=== PATIENT | male | born 1965 | race Caucasian/White ===

== ENCOUNTER 2019-07-24 10:59 | Emergency (ER) | payer OTHER, BC ==
[~2019-07-24] VITALS: Ht 185.4 cm; Wt 86.2 kg
[~2019-07-24 10:59] MED LIST: ALLO300T2 PO; FENO145T PO; LISI10TA5 PO
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
[2019-07-24] MEDS ORDERED: TDAP [DIPH/PERTUSSIS/TET] 0.5 ML VIAL IM ONE ×2 (12:11→12:30)
[2019-07-24] MEDS ORDERED: KETOROLAC TROMETHAMINE INJ 30 MG/ML VIAL ONE (12:11)
[2019-07-24] MEDS ORDERED: KETOROLAC TROMETHAMINE INJ 60 MG/2 ML VIAL IM ONE (12:30)
--- NOTE | 2019-07-24 13:05 | NUR ---
Patient discharged to home in stable condition. Written and verbal after care instructions given. Patient verbalizes understanding of instruction and RX. PT ambulatory with a steady gait.
[2019-07-24 13:06] VITALS: BP 136/87
== END 2019-07-24 13:06 | disposition home or self-care (01) ==
LOC: ER 10:59
DX: S70.01XA Contusion of right hip, initial encounter (principal); S80.211A Abrasion, right knee, initial encounter; S80.212A Abrasion, left knee, initial encounter; I10 Essential (primary) hypertension; F41.9 Anxiety disorder, unspecified; Z98.890 Other specified postprocedural states; Z79.899 Other long term (current) drug therapy; V09.9XXA Pedestrian injured in unspecified transport accident, initial encounter; Y93.89 Activity, other specified; Y92.89 Other specified places as the place of occurrence of the external cause; Y99.8 Other external cause status
CPT/HCPCS: 73502; 73564; 90471; 90715; 96372; 99283; J1885